=== PATIENT | male | born 1960 | race Caucasian/White ===

== ENCOUNTER 2025-03-08 11:57 | Emergency (ER) | payer OTHER ==
[~2025-03-08] VITALS: Ht 175.3 cm; Wt 73.7 kg
--- NOTE | 2025-03-08 12:47 | DVH ---
XY L HAND 3V XRAY INDICATION: r/o fracture left thumb TECHNICAL DATA: Frontal, oblique and lateral views were obtained of the left hand. COMPARISON: None FINDINGS: Acute fracture through the distal phalanx of the thumb with soft tissue swelling. No dislocation. IMPRESSION: 1. Acute fracture through the 1st distal phalanx.
--- NOTE | 2025-03-08 13:02 | ED.PDOC ---
HPI Comments 64 year old male with a past medical history of diabetes, hypertension, hyperlipidemia presents to the emergency department with a chief complaint of laceration LT thumb onset today (03/08/25) about 20 minutes prior to ED arrival. Patient states he was closing a ladder, when his LT thumb got slammed. No other symptoms or modifying factors present at this time. Denies fevers chills night sweats nausea vomiting Denies previous surgeries to the hand or significant injury Numbness/tingling down the arm Denies changes, shortness of breath Chief Complaint: Laceration Time Seen by MD: 12:30 Primary Care Provider: LEONA Rey Notes: Medications, Allergies Allergies: Coded Allergies: NO KNOWN ALLERGIES (Unverified , 03/08/25) Information Source: Patient Mode of Arrival: Ambulatory Severity: Moderate Severity of Laceration: Deformity, Controlled Bleeding Complexity: Complex Timing: Minutes Prehospital treatment: None Laceration Location: Digit #1 Mechanism: Work Related Laceration Length (cm): 2 Depth of Injury: Skin Capillary Refill: < 3 seconds Tender: Moderate Past Medical History PAST MEDICAL HISTORY: DM, High Lipids, HTN Surgical History: Hernia Repair Family History Family History: Reviewed,noncontributory to illness, No family hx of Cancer, No family hx of DM, No family hx of Heart cori, No family hx of HTN, No family hx ofKidney cori, No family hx of Liver cori, No family hx of Lung cori, No family hx of Stroke Social History Smoker: Non-Smoker Alcohol: Denies ETOH Use Drugs: Denies Drug Use Lives In: Home All Other Systems: Reviewed and Negative (as per HPI) Physical Exam General Appearance: Normal HEENT: Normal ENT Inspection, Pharynx Normal, TMs Normal Neck: Full Range of Motion, Non-Tender, Normal, Normal Inspection Respiratory: Chest Non-Tender, Lungs Clear, No Accessory Muscle Use, No Respiratory Distress, Normal Breath Sounds Cardiovascular: No Edema, No JVD, No Murmur, No Gallop, Normal Peripheral Pulses, Regular Rate/Rhythm Breast Exam: Deferred Gastrointestinal: No Organomegaly, Non Tender, No Pulsatile Mass, Normal Bowel Sounds, Soft Genitalia: Deferred Pelvic: Deferred Rectal: Deferred Extremities: No calf tenderness, Normal capillary refill, No pedal edema Musculoskeletal : Location: Left Extremity Location: Thumb Apperance: Normal Neurologic: Alert, manager wound care II-XII nml as Tested, No Motor Deficits, Normal Affect, Normal Mood, No Sensory Deficits Cerebellar Function: Normal Reflexes: Normal Skin: Dry, Normal Color, Warm Lymphatic: No Adenopathy Was a procedure done? Was a procedure done?: No Differential diagnosis Generic Laceration: Abrasion/Contusion, Laceration, Avulsion X-Ray, Labs, Meds, VS Vital Signs Date Time Temp Pulse Resp B/P (MAP) Pulse Ox O2 Delivery O2 Flow Rate FiO2 03/08/25 17:37 192/100 03/08/25 17:36 98.9 80 18 192/100 (130) 97 98.9 03/08/25 17:30 76 16 98 Room Air* 0 21 03/08/25 16:36 215/98 03/08/25 12:06 98.4 110 18 107/81 (90) 99 98.4 [place] [id number] Ph: [phone] DIAGNOSTIC IMAGING Diagnostic Imaging Report : [id number] Signed PATIENT: SUBHASH ANGELO LYNACCT: [id number] UNIT: [id number] : 1960 LOC: ER ROOM / BED: / AGE / SEX: 64 / M ADM STATUS: REG ER SERVICE [id number] ORDERING PHYSICIAN: TIARRA GARCIA NP PROCEDURE(s): LHAN - L HAND 3V XRAY REASON: r/o fracture left thumb ORDER NUMBER(s): [id number], ACCESSION NUMBER(s): [id number] XY L HAND 3V XRAY INDICATION: r/o fracture left thumb TECHNICAL DATA: Frontal, oblique and lateral views were obtained of the left hand. COMPARISON: None FINDINGS: Acute fracture through the distal phalanx of the thumb with soft tissue swelling. No dislocation. IMPRESSION: 1. Acute fracture through the 1st distal phalanx. ATED BY: ERICKA FIELDS MD DICTATED DATE/TIME: 03/08/251244 SIGNED BY: ERICKA FIELDS MD SIGNED DATE/TIME: 03/08/251244 CC: X-Ray, Labs, Meds, VS Comment 64 year old male with a past medical history of diabetes, hypertension, hyperlipidemia presents to the emergency department with a chief complaint of laceration LT thumb onset today (03/08/25) about 20 minutes prior to ED arrival. Patient arrives alert and oriented, ABC's intact, afebrile, vital signs stable, saturating well in room air Diagnostic imaging ordered by me and results interpreted by radiology : L HAND 3V XRAY: IMPRESSION: 1. Acute fracture through the 1st distal phalanx. Tdap updated Tolerated medications with no adverse reaction. The patient's workup reveals that the patient needs level of care due to an open fracture and patient will need an ortho washout Patient verbalized understanding of the above and is awaiting further evaluation by the admitting service. [15:55] Patient was accepted at [facility] by Dr. Khan. Patient will be transferred. Time of 1ST Reevaluation: 13:00 Reevaluation 1ST: Improved Patient Education/Counseling: Diagnosis, Treatment Family Education/Counseling: No Family Present Departure 1 Departure Time of Disposition: 15:43 Impression: Primary Impression: Open fracture Additional Impression: Phalanx, distal fracture of finger Qualified Codes: S62.525B - Nondisplaced fracture of distal phalanx of left thumb, initial encounter for open fracture Disposition: 51 HOSPICE/MEDICAL FACILITY Condition: Serious Discharged With: Self Critical Care Note Critical Care Time?: No Stability Stability form required: No Heart Score Heart Score: Heart Score Response (Comments) Value History N/A 0 EKG N/A 0 Age N/A 0 Risk Factors N/A 0 Troponin N/A 0 Total 0 I personally scribed for TIARRA GARCIA EYELET MACHINE OPERATOR ([email or web address]) on 03/08/25 at 13:02. Electronically submitted by Marianne Martinez ([email or web address]). I personally scribed for TIARRA GARCIA EYELET MACHINE OPERATOR ([email or web address]) on 03/08/25 at 14:46. Electronically submitted by Marianne Martinez ([email or web address]). I personally scribed for TIARRA GARCIA EYELET MACHINE OPERATOR ([email or web address]) on 03/08/25 at 15:38. Electronically submitted by Marianne Martinez ([email or web address]). TIARRA GARCIA EYELET MACHINE OPERATOR Mar 08, 2025 13:02
[2025-03-08] MEDS: ceFAZolin 2 GM/D5W50ml 50 ML IV ONE (15:23)
[2025-03-08] MEDS: TETANUS-DIPTH-ACEL PERTUSSIS 0.5ML SYR Tdap IM ONE (15:28)
[2025-03-08 17:30] VITALS: PULSE 76; RESP 16; O2SAT 98
[2025-03-08 17:36] VITALS: BP 192/100; PULSE 80; RESP 18; TEMP 98.9; O2SAT 97
== END 2025-03-08 17:42 | disposition short-term general hospital (02) ==
LOC: ER 11:57
DX: S62.522B Displaced fracture of distal phalanx of left thumb, initial encounter for open fracture (principal); E11.9 Type 2 diabetes mellitus without complications; E78.5 Hyperlipidemia, unspecified; I10 Essential (primary) hypertension; Z98.890 Other specified postprocedural states; X58.XXXA Exposure to other specified factors, initial encounter; Y93.89 Activity, other specified; Y92.89 Other specified places as the place of occurrence of the external cause; Y99.8 Other external cause status
CPT/HCPCS: 73130; 90471; 90715; 96365; 99285; J0690